=== PATIENT | male | born 1990 | race Caucasian/White ===

== ENCOUNTER 2021-11-25 08:21 | Emergency (ER) | payer BC ==
[~2021-11-25] VITALS: Ht 198.1 cm; Wt 95.3 kg
[2021-11-25 08:23] VITALS: BP_SYST 129
--- NOTE | 2021-11-25 08:23 | NUR ---
BROUGHT BACK TO BED #8 AND TRIAGED. WILL ASSUME CARE.
--- NOTE | 2021-11-25 08:35 | NUR ---
PT STATES HE AWOKE WITH REDNESS AND SWELLING TO LEFT ELBOW. PT STATES ONLY SLIGHT PAIN WITH BENDING OF ELBOW, PAIN 1/10. PT DENIES ANY INJURY OR TRAUMA. LEFT ELBOW WARM TO TOUCH
--- NOTE | 2021-11-25 08:45 | NUR ---
DR BALTAZAR AT BEDSIDE FOR EVALUATION
[2021-11-25] MEDS ORDERED: CEPH-548 PO (08:54)
[2021-11-25] MEDS ORDERED: SULF1TAB48 PO (08:54)
--- NOTE | 2021-11-25 09:23 | NUR ---
Patient given written and verbal discharge instructions and verbalizes understanding. ER MD discussed with patient the results and treatment provided. Patient in stable condition. ID arm band removed. Rx of BACTRIM, SULFA given. Patient educated on pain management and to follow up with PMD. Pain Scale 0/10. Opportunity for questions provided and answered. Medication side effect fact sheet provided.
== END 2021-11-25 09:23 | disposition home or self-care (01) ==
LOC: SED 08:21
DX: L03.114 Cellulitis of left upper limb (principal); F17.210 Nicotine dependence, cigarettes, uncomplicated; Z79.899 Other long term (current) drug therapy
CPT/HCPCS: 99283

== ENCOUNTER 2022-03-16 15:16 | Emergency (ER) | payer MEDICAID ==
[~2022-03-16] VITALS: Ht 198.1 cm; Wt 99.8 kg
[~2022-03-16 15:16] MED LIST: CEPH-548 PO; SULF1TAB48 PO
[2022-03-16 15:29] VITALS: BP_SYST 126
[2022-03-16] MEDS ORDERED: LIDOCAINE/EPI 2% 1:100000 20 ML VIAL INJ ONE (15:45)
[2022-03-16] MEDS ORDERED: DIPHTH,PERTUSS(ACELL),TET VAC 0.5 ML VIAL (Tdap) I.M. ONE (15:45)
--- NOTE | 2022-03-16 17:15 | NUR ---
Patient to [facility] for evaluation.
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
--- NOTE | 2022-03-16 17:20 | NUR ---
ER at bedside examining patient.
[2022-03-16] MEDS ORDERED: ONDANSETRON 4 MG ODT TAB PO ONE (17:45)
[2022-03-16] MEDS ORDERED: HYDROcodone/ACETAMIN 5-325 MG TAB (NORCO/ VICODIN) PO ONE (17:45)
[2022-03-16] MEDS ORDERED: IBUP-1969 PO (17:46)
[2022-03-16] MEDS ORDERED: NEOM28.36 TP (17:46)
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
[2022-03-16 18:27] VITALS: BP_SYST 122
--- NOTE | 2022-03-16 18:27 | NUR ---
Patient given written and verbal discharge instructions and verbalizes understanding. ER MD discussed with patient the results and treatment provided. Patient in stable condition. ID arm band removed. Rx of IBUPROFEN AND NEOSPORIN given. Patient educated on pain management and to follow up with PMD. Pain Scale 0/10 Opportunity for questions provided and answered. Medication side effect fact sheet provided.
[2022-03-18 11:07] LABS: HEPATITIS B CORE AB, TOTAL Negative (Negative); HEPATITIS B SURFACE AG Negative (Negative); HEPATITIS C VIRUS AB <0.1 s/co ratio (0.0-0.9)
== END 2022-03-16 18:27 | disposition home or self-care (01) ==
LOC: SED 15:16
DX: S01.511A Laceration without foreign body of lip, initial encounter (principal); Z79.899 Other long term (current) drug therapy; Y04.0XXA Assault by unarmed brawl or fight, initial encounter; Y93.89 Activity, other specified; Y92.89 Other specified places as the place of occurrence of the external cause; Y99.8 Other external cause status
CPT/HCPCS: 99283; 36415; 86704; 86803; 87340; 86706; 12013; Q0162; 90715

== ENCOUNTER 2022-03-21 10:28 | Emergency (ER) | payer MEDICAID ==
[~2022-03-21] VITALS: Ht 205.7 cm; Wt 98.0 kg
[~2022-03-21 10:28] MED LIST changes: +IBUP-1969 PO; +NEOM28.36 TP
[2022-03-21 10:32] VITALS: BP_SYST 139
== END 2022-03-21 11:26 | disposition home or self-care (01) ==
LOC: SED 10:28
DX: Z48.02 Encounter for removal of sutures (principal)
CPT/HCPCS: 99281

== ENCOUNTER 2022-04-29 03:59 | Emergency (ER) | payer MEDICAID ==
[~2022-04-29] VITALS: Ht 198.1 cm; Wt 97.5 kg
[2022-04-29 04:18] VITALS: BP_SYST 158
--- NOTE | 2022-04-29 04:18 | NUR ---
Patient triaged and placed in bed 2. VSS and patient appears in no acute distress at this time. Accompanied by self. MD notified of need for MSE.
--- NOTE | 2022-04-29 04:19 | NUR ---
Patient to ER bed 2 to gown for evaluation. Connected to monitor with safety precautions in place.
--- NOTE | 2022-04-29 04:19 | NUR ---
Pt c/o painful pimple to left pelvis that developed over the past couple of weeks. Pt states that he popped it earlier tonight and pus came out. No active bleeding or drainage to site.
--- NOTE | 2022-04-29 04:20 | NUR ---
ER MD Lee at bedside examining patient.
[2022-04-29] MEDS ORDERED: SULF1TAB48 PO (04:24)
[2022-04-29 04:30] VITALS: BP_SYST 155
[2022-04-29] MEDS ORDERED: KETOROLAC TROMETHAMINE 30 MG VIAL IM ONE (04:30)
--- NOTE | 2022-04-29 04:30 | NUR ---
Patient given written and verbal discharge instructions and verbalizes understanding. ER MD discussed with patient the results and treatment provided. Patient in stable condition. ID arm band removed. Rx of Bactrim given. Patient educated on pain management and to follow up with PMD. Pain Scale 3/10. Opportunity for questions provided and answered. Medication side effect fact sheet provided. Patient A/Ox3, VSS, ambulatory, resp even and unlabored. Nad noted at this time.
== END 2022-04-29 04:30 | disposition home or self-care (01) ==
LOC: SED 03:59
DX: L73.9 Follicular disorder, unspecified (principal); R19.09 Other intra-abdominal and pelvic swelling, mass and lump; Z79.899 Other long term (current) drug therapy
CPT/HCPCS: 99283; 96372; J1885

== ENCOUNTER 2022-09-25 22:31 | Emergency (ER) | payer MEDICAID ==
[~2022-09-25] VITALS: Ht 195.6 cm; Wt 90.7 kg
[2022-09-25 22:49] VITALS: BP_SYST 126; PULSE 98; RESP 20; TEMP 98.5; O2SAT 98
[2022-09-26 00:40] LABS: BARBITURATE, URINE NEGATIVE (NEG <=200); METHAMPHETAMINES SCREEN,URINE POSITIVE (NEG <=500); URINE AMPHETAMINE POSITIVE (NEG <=500)
[2022-09-26 00:41] LABS: BENZODIAZEPINE, URINE NEGATIVE (NEG <=150); CANNABINOID, URINE POSITIVE (NEG <=50); COCAINE, URINE NEGATIVE (NEG <=150); OPIATE, URINE NEGATIVE (NEG <=100); PHENCYCLIDINE SCREEN,URINE NEGATIVE (NEG <=25); UR TRICYCLIC ANTIDEPRESSANTS NEGATIVE (NEG <=300); URINE METHADONE NEGATIVE (NEG <=200); URINE OXYCODONE SCREEN NEGATIVE (NEG <=100); URINE PROPOXYPHENE SCREEN NEGATIVE (NEG <=300)
[2022-09-26 04:25] VITALS: BP_SYST 129; PULSE 85; RESP 18; TEMP 97.7; O2SAT 97
== END 2022-09-26 04:28 | disposition home or self-care (01) ==
LOC: SED 22:31
DX: M21.331 Wrist drop, right wrist (principal); F19.10 Other psychoactive substance abuse, uncomplicated; F17.200 Nicotine dependence, unspecified, uncomplicated; Z79.899 Other long term (current) drug therapy
CPT/HCPCS: 70450-TC; 76376; 80307; 82962; 93005; 99284